=== PATIENT | male | born 1950 | race Caucasian/White ===

== ENCOUNTER → 2016-10-29 | Outpatient (CLI) | payer OTHER ==
[~2016-10-29] MED LIST: AYR SALINE MIST50 ML NAS; CRESTOR10 MG PO; HYDR12.5C PO; LASIX20 MG PO; LISINOPRIL2.5 MG PO; NKHM; NORCO 325 MG-51 TAB PO; NORVASC5 MG PO; POTASSIUM20 MEQ PO; TENORMIN25 MG PO; VANCOMYCIN250 MG/5 M IV; ZOSYN 3.373.375 GM/5 IV; [UNRECOGNIZED DRUG - CODE] TP
== END | disposition home or self-care (01) ==
LOC: US 08:50
DX: R94.5 Abnormal results of liver function studies (principal)

== ENCOUNTER → 2019-01-30 | Day surgery (SDC) | payer OTHER ==
[~2019-01-30] VITALS: Ht 175.2 cm; Wt 134.3 kg
[~2019-01-30] MED LIST changes: +COREG6.25 MG PO; +COZAAR100 MG PO
--- NOTE | ~2019-01-30 | O ---
[place], [place] OPERATIVE NOTE NAME: [facility]ES [id number] UNIT #: [id number] ROOM: DOCTOR: PRESTON LY MD BIRTHDATE: [birth year] DOS: 01/30/2019 PREOPERATIVE DIAGNOSIS: Cataract, left eye. POSTOPERATIVE DIAGNOSIS: Cataract, left eye. OPERATION: Extracapsular cataract extraction by phacoemulsification with posterior chamber intraocular lens implantation, left eye. ANESTHESIA: Monitored standby. INTRAOCULAR LENS: Danny, Model #AU00T0, 17.0 diopters, left eye. OPERATIVE FINDINGS AND PROCEDURE: 2% Xylocaine topical anesthetic gel was applied to the eye in the preop area. The patient was taken to the operating room and prepped and draped in the standard fashion for sterile intraocular surgery. A time out procedure was performed verifying correct patient, correct site and corrects lens with Taty Ly M.D. The operating microscope was swung into position and the lid speculum was inserted. Using a Gisele paracentesis blade, a paracentesis was made through clear cornea. A mixture of preservative-free lidocaine 4% and preservative-free epinephrine 1:1000 in balanced salt solution was injected into the anterior chamber. Viscoelastic was used to fill the anterior chamber. Using a metal keratome a 2.4 mm self-sealing clear corneal cataract incision was made temporally at the limbus. Using a pre-bent 25 gauge cystotome needle, a standard continuous curvilinear capsulorrhexis was performed. The anterior capsule was removed with forceps. The lens nucleus was hydrodissected and phacoemulsified in the posterior chamber. Cortical material was removed with the irrigation aspiration hand piece and the posterior capsule was then polished with a curet under irrigation. The posterior chamber and capsular bag were filled with viscoelastic. A posterior chamber intraocular lens manufactured by: Danny, Model #[id number], and 17.0 diopters in strength were then inserted into the posterior chamber and within the capsular bag using the lens cartridge and injector system. Viscoelastic was removed using the irrigation aspiration handpiece. The anterior chamber was filled with balanced salt solution through the paracentesis. Both the paracentesis site and cataract incisions were hydrated with BSS and verified to be water-tight and self-sealing. Cefuroxime 1 mg/0.1 mL was injected into the anterior chamber through the paracentesis site. The incision checked to be water-tight using a Weck-Kaycee sponge. The integrity of the cataract wound and ocular tension were checked. Lid speculum and drapes were removed. The patient was transferred from the operating room to the recovery room in satisfactory condition. [place], [place] OPERATIVE NOTE NAME: KWADWO VIDALES UNIT #: [id number] ROOM: DOCTOR: PRESTON LY MD BIRTHDATE: [birth year] PRESTON LY MD CM:OPRECORD:OPERATIVE NOTE 1205 [id number] PRESTON LY MD 01/30/19 1420 interface
[2019-01-30 10:15] VITALS: BP 165/95
[2019-01-30 11:24] VITALS: BP 119/74
[2019-01-30 11:39] VITALS: BP 146/79
[2019-01-30 11:52] VITALS: BP 148/72
== END | disposition home or self-care (01) ==
LOC: SDC 01-25 14:45
DX: H25.812 Combined forms of age-related cataract, left eye (principal); I10 Essential (primary) hypertension; F41.9 Anxiety disorder, unspecified; F32.9 Major depressive disorder, single episode, unspecified; G47.30 Sleep apnea, unspecified; E66.01 Morbid (severe) obesity due to excess calories; Z68.41 Body mass index [BMI] 40.0-44.9, adult; Z98.890 Other specified postprocedural states; Z79.899 Other long term (current) drug therapy

== ENCOUNTER → 2019-02-20 | Day surgery (SDC) | payer OTHER ==
[~2019-02-20] VITALS: Ht 175.2 cm; Wt 134.3 kg
--- NOTE | ~2019-02-20 | O ---
[place], [place] OPERATIVE NOTE NAME: KWADWO VIDALES [facility] #: [id number] UNIT #: [id number] ROOM: DOCTOR: PRESTON LY MD BIRTHDATE: [birth year] DOS: 02/20/2019 PREOPERATIVE DIAGNOSIS: Cataract, right eye. POSTOPERATIVE DIAGNOSIS: Cataract, right eye. OPERATION: Extracapsular cataract extraction by phacoemulsification with posterior chamber intraocular lens implantation, right eye. ANESTHESIA: Monitored standby. OPERATIVE FINDINGS AND PROCEDURE: 2% Xylocaine topical anesthetic gel was applied to the eye in the preop area. The patient was taken to the operating room and prepped and draped in the standard fashion for sterile intraocular surgery. A time out procedure was performed verifying correct patient, correct site and corrects lens with Taty Ly M.D. The operating microscope was swung into position and the lid speculum was inserted. Using a Gisele paracentesis blade, a paracentesis was made through clear cornea. Viscoelastic was used to fill the anterior chamber. Using a metal keratome a 2.4 mm self-sealing clear corneal cataract incision was made temporally at the limbus. Using a pre-bent 25 gauge cystotome needle, a standard continuous curvilinear capsulorrhexis was performed. The anterior capsule was removed with forceps. The lens nucleus was hydrodissected and phacoemulsified in the posterior chamber. Cortical material was removed with the irrigation aspiration hand piece and the posterior capsule was then polished with a curet under irrigation. The posterior chamber and capsular bag were filled with viscoelastic. A posterior chamber intraocular lens manufactured by: Danny, AU00T0 and 17.0 diopters in strength were then inserted into the posterior chamber and within the capsular bag using the lens cartridge and injector system. Viscoelastic was removed using the irrigation aspiration handpiece. The anterior chamber was filled with balanced salt solution through the paracentesis. Both the paracentesis site and cataract incisions were hydrated with BSS and verified to be water-tight and self-sealing. Cefuroxime 1 mg/0.1 mL was injected into the anterior chamber through the paracentesis site. The incision checked to be water-tight using a Weck-Kaycee sponge. The integrity of the cataract wound and ocular tension were checked. Lid speculum and drapes were removed. The patient was transferred from the operating room to the recovery room in satisfactory condition. [place], [place] OPERATIVE NOTE NAME: KWADWO VIDALES UNIT #: [id number] ROOM: DOCTOR: PRESTON LY MD BIRTHDATE: [birth year] PRESTON LY MD CM:OPRECORD:OPERATIVE NOTE 1013 1053 PRESTON LY MD 02/20/19 1052 interface
[2019-02-20 08:53] VITALS: BP 153/87
[2019-02-20 10:11] VITALS: BP 150/88
[2019-02-20 10:26] VITALS: BP 134/80
[2019-02-20 10:41] VITALS: BP 137/83
== END | disposition home or self-care (01) ==
LOC: SDC 02-14 11:00
DX: H25.811 Combined forms of age-related cataract, right eye (principal); I10 Essential (primary) hypertension; F41.9 Anxiety disorder, unspecified; F32.9 Major depressive disorder, single episode, unspecified; E66.01 Morbid (severe) obesity due to excess calories; Z68.43 Body mass index [BMI] 50.0-59.9, adult; Z98.890 Other specified postprocedural states; Z79.899 Other long term (current) drug therapy

== ENCOUNTER → 2020-12-07 | Outpatient (CLI) | payer OTHER | END | disposition home or self-care (01) | LOC: US 13:49 | PROVIDERS: ATTEND Physician Assistant | DX: I65.23 Occlusion and stenosis of bilateral carotid arteries (principal) ==

== ENCOUNTER → 2021-12-13 | Outpatient (CLI) | payer OTHER | END | disposition home or self-care (01) | LOC: ORTHO 02:38 | PROVIDERS: ATTEND Orthopaedic Surgery | DX: M17.0 Bilateral primary osteoarthritis of knee (principal); M70.52 Other bursitis of knee, left knee; Y93.89 Activity, other specified ==

== ENCOUNTER 2022-10-02 00:14 | Emergency (ER) | payer OTHER ==
[~2022-10-02] VITALS: Ht 175.2 cm; Wt 136.1 kg
[2022-10-02] MEDS ORDERED: Percocet 325 MG1 TAB PO (01:30)
== END 2022-10-02 03:38 | disposition home or self-care (01) ==
LOC: ED 00:14
DX: S43.014A Anterior dislocation of right humerus, initial encounter (principal); F41.9 Anxiety disorder, unspecified; F32.A Depression, unspecified; I10 Essential (primary) hypertension; Z98.890 Other specified postprocedural states; Z87.442 Personal history of urinary calculi; W01.0XXA Fall on same level from slipping, tripping and stumbling without subsequent striking against object, initial encounter; Y93.K1 Activity, walking an animal; Y92.89 Other specified places as the place of occurrence of the external cause; Y99.8 Other external cause status

== ENCOUNTER → 2025-02-11 | Outpatient (CLI) | payer OTHER ==
[~2025-02-11] MED LIST changes: +Percocet 325 MG1 TAB PO
== END | disposition home or self-care (01) ==
LOC: RAD 14:57
PROVIDERS: ATTEND Physician Assistant
DX: M47.816 Spondylosis without myelopathy or radiculopathy, lumbar region (principal); M48.061 Spinal stenosis, lumbar region without neurogenic claudication